=== PATIENT | female | born 1945 | race Native Hawaiian/Other Pacific Islander ===

== ENCOUNTER 2018-08-29 14:40 | Emergency (ER) | payer OTHER ==
[~2018-08-29] VITALS: Ht 162.6 cm; Wt 59.0 kg
[2018-08-29 15:11] LABS: PLATELET COUNT 419 K/uL (152-353)
[2018-08-29 16:20] VITALS: BP 141/89; TEMP 97.9
[2018-08-29] MEDS ORDERED: BENZ1TAB43 PO (16:54)
[2018-08-29] MEDS ORDERED: BRIMONIDINE0.2 % OTIC (16:56)
[2018-08-29] MEDS ORDERED: CEFD300C2 PO (16:57)
[2018-08-29] MEDS ORDERED: ESOMEPRAZOLE MA40 M1 PO (16:59)
[2018-08-29] MEDS ORDERED: FLUOXETINE20 MG PO (17:00)
[2018-08-29] MEDS ORDERED: XALATAN0.005 % OTIC (17:01)
[2018-08-29] MEDS ORDERED: LORA1TAB17 PO (17:02)
[2018-08-29] MEDS ORDERED: PROPRANOLOL10 MG PO (17:03)
== END 2018-08-29 16:20 | disposition other institution (70) ==
LOC: ED 14:40
PROVIDERS: Emergency Medicine
DX: R44.0 Auditory hallucinations (principal); E86.0 Dehydration; D72.828 Other elevated white blood cell count; Z04.6 Encounter for general psychiatric examination, requested by authority
CPT/HCPCS: 36415; 80053; 81000; 85027; 93005; 99285

== ENCOUNTER 2018-09-02 12:56 | Inpatient (IN) | payer OTHER ==
[~2018-09-02] VITALS: Ht 160 cm; Wt 53.7 kg
[2018-09-02] VITALS (12 sets, daily range): BP systolic 109–1736; BP diastolic 65–86; TEMP 98.2–100.6; Ht 160 cm; Wt 53.7 kg
[~2018-09-02 12:56] MED LIST: BENZ1TAB43 PO; BRIMONIDINE0.2 % OTIC; CEFD300C2 PO; ESOMEPRAZOLE MA40 M1 PO; FLUOXETINE20 MG PO; LORA1TAB17 PO; PROPRANOLOL10 MG PO; XALATAN0.005 % OTIC
[2018-09-02 13:34] LABS: PLATELET COUNT 476 K/uL (152-353)
[2018-09-02 13:53] LABS: POTASSIUM 3.1 mmol/L (3.6-5.2)
[2018-09-03] VITALS (25 sets, daily range): BP systolic 101–161; BP diastolic 46–92; TEMP 97.1–99.5
[2018-09-03 06:43] LABS: PLATELET COUNT 295 K/uL (152-353)
[2018-09-03 06:54] LABS: POTASSIUM 3.7 mmol/L (3.6-5.2)
[2018-09-04] VITALS (24 sets, daily range): BP systolic 111–164; BP diastolic 64–98; TEMP 97.4–99
[2018-09-04 06:05] LABS: PLATELET COUNT 197 K/uL (152-353)
[2018-09-05] VITALS (24 sets, daily range): BP systolic 102–155; BP diastolic 52–84; TEMP 97.1–100
[2018-09-05 06:27] LABS: PLATELET COUNT 203 K/uL (152-353)
[2018-09-05 06:35] LABS: POTASSIUM 3.4 mmol/L (3.6-5.2)
[2018-09-06] VITALS (17 sets, daily range): BP systolic 97–138; BP diastolic 54–83; TEMP 97.5–99.4
[2018-09-06 06:35] LABS: PLATELET COUNT 129 K/uL (152-353)
[2018-09-06 06:51] LABS: POTASSIUM 2.9 mmol/L (3.6-5.2)
[2018-09-07] VITALS (20 sets, daily range): BP systolic 86–157; BP diastolic 42–96; TEMP 97–98.4
[2018-09-07 05:23] LABS: PLATELET COUNT 105 K/uL (152-353)
[2018-09-07 05:39] LABS: POTASSIUM 3.7 mmol/L (3.6-5.2)
[2018-09-08] VITALS (18 sets, daily range): BP systolic 113–145; BP diastolic 60–101; TEMP 97.6–98.7
[2018-09-08 05:49] LABS: PLATELET COUNT 115 K/uL (152-353)
[2018-09-09] VITALS (23 sets, daily range): BP systolic 104–169; BP diastolic 57–95; TEMP 97.5–99.1
[2018-09-09 06:52] LABS: PLATELET COUNT 118 K/uL (152-353)
[2018-09-09 07:03] LABS: POTASSIUM 3.9 mmol/L (3.6-5.2)
[2018-09-10] VITALS (17 sets, daily range): BP systolic 108–164; BP diastolic 64–89; TEMP 98–100.1
[2018-09-10 05:04] LABS: PLATELET COUNT 164 K/uL (152-353)
[2018-09-10 05:58] LABS: POTASSIUM 3.9 mmol/L (3.6-5.2)
[2018-09-11] VITALS (10 sets, daily range): BP systolic 109–1167; BP diastolic 61–82; TEMP 98.1–99.4
[2018-09-11 05:21] LABS: PLATELET COUNT 198 K/uL (152-353)
[2018-09-11 05:38] LABS: POTASSIUM 4.2 mmol/L (3.6-5.2)
[2018-09-12] VITALS (13 sets, daily range): BP systolic 91–144; BP diastolic 53–86; TEMP 97.8–99.3
[2018-09-12 05:18] LABS: PLATELET COUNT 247 K/uL (152-353)
[2018-09-12 06:08] LABS: POTASSIUM 3.8 mmol/L (3.6-5.2)
[2018-09-13] VITALS (7 sets, daily range): BP systolic 117–143; BP diastolic 65–87; TEMP 97.6–98.8
[2018-09-13 05:43] LABS: POTASSIUM 4.2 mmol/L (3.6-5.2)
[2018-09-14] VITALS: BP 151/70; TEMP 98.1
[2018-09-14 04:00] VITALS: BP 148/86; TEMP 98.1
[2018-09-14 08:00] VITALS: BP 163/84; TEMP 98.4
[2018-09-14] MEDS ORDERED: [UNRECOGNIZED DRUG - CODE] IVPB (10:04)
[2018-09-14] MEDS ORDERED: LORA2INJ21 IV (10:04)
[2018-09-14] MEDS ORDERED: [UNRECOGNIZED DRUG - CODE] INH (10:04)
[2018-09-14] MEDS ORDERED: ZIPR20IN IM (10:04)
[2018-09-14] MEDS ORDERED: PANT40IN IV (10:04)
[2018-09-14 12:00] VITALS: BP 115/60; TEMP 97.5
[2018-09-14 16:00] VITALS: BP 118/67; TEMP 98.1
== END 2018-09-14 17:00 | disposition short-term general hospital (02) | DRG 871 ==
LOC: ICU 12:56 → MED/SURG 09-13 12:30
PROVIDERS: Internal Medicine; ADMIT Emergency Medicine
PROC: 02HV33Z Insertion of Infusion Device into Superior Vena Cava, Percutaneous Approach (ICD-10-PCS; principal; 2018-09-12)
DX: A41.01 Sepsis due to Methicillin susceptible Staphylococcus aureus (principal); J15.6 Pneumonia due to other Gram-negative bacteria; J15.211 Pneumonia due to Methicillin susceptible Staphylococcus aureus; R65.21 Severe sepsis with septic shock; J96.01 Acute respiratory failure with hypoxia; E87.0 Hyperosmolality and hypernatremia; M62.82 Rhabdomyolysis; N39.0 Urinary tract infection, site not specified; E87.6 Hypokalemia; I95.89 Other hypotension; R80.8 Other proteinuria; K02.9 Dental caries, unspecified; D69.6 Thrombocytopenia, unspecified; E88.09 Other disorders of plasma-protein metabolism, not elsewhere classified; R13.11 Dysphagia, oral phase; R91.1 Solitary pulmonary nodule
CPT/HCPCS: 36415; 36571; 36600; 80053; 80061; 80202; 81000; 82550; 82553; 82805; 83605; 83615; 83735; 84100; 84134; 84443; 84478; 84484; 85027; 85379; 85610; 87040; 87070; 87077; 87088; 87185; 87186; 87205; 87324; 87449; 87899; 93005; 94640; 94664; 94760; C1751; J0132; J1630; J1650; J1885; J1956; J2001; J2060; J2270; J2543; J3370; J3480; J3486; J3490; J7120; Q9963